=== PATIENT | female | born 1995 | race Caucasian/White ===

== ENCOUNTER 2018-01-30 20:48 | Emergency (ER) | payer OTHER ==
[~2018-01-30] VITALS: Ht 149.9 cm; Wt 52.2 kg
[2018-01-30 20:54] VITALS: Ht 149.9 cm; Wt 52.2 kg
[2018-01-30 21:52] VITALS: BP 120/79
== END 2018-01-30 21:52 | disposition home or self-care (01) ==
LOC: ED 20:48
DX: R51 Headache (principal)

== ENCOUNTER 2018-06-17 17:23 | Emergency (ER) | payer OTHER ==
[~2018-06-17] VITALS: Ht 149.9 cm; Wt 52.6 kg
[2018-06-17 17:29] VITALS: Ht 149.9 cm; Wt 52.6 kg
[2018-06-17 21:35] LABS: BASOPHIL % 0.7 % (0-2); PLATELET COUNT 301 x10^3mcL (130-400); RED CELL DISTRIBUTION WIDTH 14.6 % (11.5-14.5)
[2018-06-17 21:46] LABS: CALCIUM 8.7 mg/dL (8.5-10.1); CARBON DIOXIDE 23.7 mmol/L (21-32); CHLORIDE SERUM 104 mmol/L (98-107); CREATININE SERUM 0.7 mg/dL (0.6-1.0); GFR1 > 60 mL/min; GLUCOSE SERUM 94 mg/dL (74-106); POTASSIUM SERUM 4.1 mmol/L (3.5-5.1); SODIUM SERUM 138 mmol/L (136-145)
[2018-06-17 21:47] LABS: C REACTIVE PROTEIN < 0.2 mg/dL (<=0.9)
[2018-06-17 22:32] LABS: ERYTHROCYTE SED RATE 13 mm/hr (0-20)
[2018-06-17 23:33] VITALS: BP 123/89
== END 2018-06-17 23:33 | disposition home or self-care (01) ==
LOC: ED 17:23
PROVIDERS: Emergency Medicine
DX: G43.909 Migraine, unspecified, not intractable, without status migrainosus (principal); J32.9 Chronic sinusitis, unspecified
CPT/HCPCS: J1200; J2270; J2765; J7030

== ENCOUNTER 2018-09-10 21:38 | Emergency (ER) | payer OTHER ==
[~2018-09-10] VITALS: Ht 149.9 cm; Wt 56.7 kg
[2018-09-10 21:42] VITALS: BP 138/94; Ht 149.9 cm; Wt 56.7 kg
== END 2018-09-11 01:17 | disposition home or self-care (01) ==
LOC: ED 21:38
DX: R22.0 Localized swelling, mass and lump, head (principal); R03.0 Elevated blood-pressure reading, without diagnosis of hypertension; G43.909 Migraine, unspecified, not intractable, without status migrainosus

== ENCOUNTER 2018-11-23 14:33 | Emergency (ER) | payer OTHER ==
[~2018-11-23] VITALS: Ht 149.9 cm; Wt 58.3 kg
[2018-11-23 14:41] VITALS: Ht 149.9 cm; Wt 58.3 kg
[2018-11-23 17:42] VITALS: BP 105/77
== END 2018-11-23 17:42 | disposition home or self-care (01) ==
LOC: ED 14:33
DX: K52.9 Noninfective gastroenteritis and colitis, unspecified (principal); G43.909 Migraine, unspecified, not intractable, without status migrainosus
CPT/HCPCS: Q0162

== ENCOUNTER 2019-02-09 11:46 | Emergency (ER) | payer OTHER ==
[~2019-02-09] VITALS: Ht 149.9 cm; Wt 59.9 kg
[2019-02-09 12:14] VITALS: BP 136/79; Ht 149.9 cm; Wt 59.9 kg
== END 2019-02-09 15:46 | disposition left against medical advice (07) ==
LOC: ED 11:46
DX: N93.9 Abnormal uterine and vaginal bleeding, unspecified (principal); G43.909 Migraine, unspecified, not intractable, without status migrainosus; R10.30 Lower abdominal pain, unspecified; M54.5 Low back pain
CPT/HCPCS: 36415